=== PATIENT | male | born 1970 | race Caucasian/White ===

== ENCOUNTER → 2020-06-23 | Outpatient (CLI) | payer BC ==
[2020-06-23 18:08] LABS: Chol/HDL Ratio 4.38; LDL Cholesterol,Calculated 165.2 mg/dL (0.0-131.0); VLDL Calculation 13.8 mg/dL (5.00-40.00)
== END | disposition home or self-care (01) ==
LOC: LABWHC1 09:30
PROVIDERS: ATTEND Internal Medicine Interventional Cardiology
DX: E78.5 Hyperlipidemia, unspecified (principal)
CPT/HCPCS: 36415; 80061; 82550; 84450; 84460